=== PATIENT | female | born 1950 | race Caucasian/White ===

== ENCOUNTER 2019-03-16 06:12 | Day surgery (SDC) | payer OTHER ==
[2019-03-11 14:32] VITALS: BMI 20.7
[2019-03-16] MEDS ORDERED: LIDOCAINE HCL/PF 2% SDV 5ML VIAL ONE (07:22)
[2019-03-16] MEDS ORDERED: LIDOCAINE HCL 2% JELLY (5 ML/TUBE) ONE (07:22)
[2019-03-16] MEDS ORDERED: PROPOFOL 20 ML ONE ×4 (07:23)
[2019-03-16] MEDS ORDERED: MIDAZOLAM HCL 2 MG/2 ML SINGLE DOSE VIAL ONE (07:23)
[2019-03-16] MEDS ORDERED: oxyCODONE HCL 5 MG TABLET PO PRN (08:51)
[2019-03-16] MEDS ORDERED: IBUPROFEN 600 MG TABLET (FP) PO PRN (08:51)
[2019-03-16] MEDS ORDERED: ONDANSETRON 4 MG/2 ML VIAL IVPUSH PRN (08:51)
[2019-03-16] MEDS ORDERED: IBUPROFEN 800 MG/8 ML IJ IVPB PRN (08:51)
--- NOTE | 2019-03-16 08:53 | HP ---
History & Physical Update - History History: No Change - Physical Physical: No Change - Assessment Assessment: No Change - Plan Plan: No Change (H&P unchanged, consent signed and witnessed)
--- NOTE | 2019-03-16 08:57 | OP ---
Operative Note - Note: Operative Date: 03/16/19 Pre-Operative Diagnosis: 68yo P7 with 10mm Endometrium, no PMB Operation: Hysteroscopy/Polypectomy/D&C Post-Operative Diagnosis: Same as Pre-op Surgeon: Leyla Patel Anesthesiologist/CARPENTER'S HELPER: Zac Hunter Anesthesia: MAC Estimated Blood Loss (mls): 50 Drains & Tubes with Location: FD - 1150cc Drains, Volume Out (mls): 75 Fluid Volume Replaced (mls): 600 Operative Report Dictated: Yes
[2019-03-16] MEDS ORDERED: ELECTROLYTE-148 SOLN 1,000 ML IV SCH (09:00)
[2019-03-16 10:03] VITALS: PULSE 81; TEMP 97.3
[2019-03-16 10:59] VITALS: BP 122/69
--- NOTE | 2019-03-17 07:27 | OP ---
DATE OF OPERATION: DATE OF DICTATION: 03/16/2019 PREOPERATIVE DIAGNOSIS: A 68-year-old para 7 with 10-mm endometrium, no postmenopausal bleeding. PROCEDURE PERFORMED: Hysteroscopy, polypectomy, dilatation and curettage. POSTOPERATIVE DIAGNOSIS: A 68-year-old para 7 with 10-mm endometrium, no postmenopausal bleeding. Endometrial polyp. SURGEON: Sameer Ybarra MD ANESTHESIOLOGIST: Zac Hunter M.D. ANESTHESIA: MAC. DESCRIPTION OF PROCEDURE: After ensuring informed consent, the patient was brought to the operating room, where she was placed in the dorsal lithotomy position. The perineum and vagina were prepped and draped in sterile fashion. Thomas retractors were placed into the vagina. The anterior cervical lip was grasped with a single-tooth tenaculum, and the cervix was gradually dilated to accommodate a 6.3-mm Symphion hysteroscope. The Symphion hysteroscope was assembled, white balanced and primed. It was introduced into the uterus without any difficulty. The right cornual polyp was noted. Subsequently the resectoscope piece was introduced through the hysteroscope and the polyp was resected. Dilatation and curettage was performed. Excellent hemostasis was noted. All instruments were removed from the uterus, cervix and vagina. Estimated blood loss was 50 mL. Fluid deficit was found to be 1150 mL. The patient was straight catheterized before the procedure and drained 75 mL of urine and received 600 mL of IV fluids during the procedure. Instrument and sponge counts were correct x2. The patient tolerated the procedure well, and was brought to the recovery room in stable condition. SAMEER YBARRA M.D. [id number]
--- NOTE | 2019-03-17 16:17 | PATH ---
Surgical Pathology Report Patient Name: SAMRA PARKER [facility]. Rec. #: [id number] /Age/Gender: 1950 (Age: 68) / F Account: [id number] Location: [facility] Taken: 03/16/2019 Received: 03/16/2019 Reported: 03/17/2019 Physicians: Leyla Patel M.D. Specimen(s) Received POLYP Clinical History Thickened endometrium Final Diagnosis ENDOMETRIAL POLYP, BIOPSY: FRAGMENTS OF ENDOMETRIAL POLYP. SEPARATE FRAGMENTS OF SMOOTH MUSCLE BUNDLES, MAY REPRESENT A SUBMUCOSAL LEIOMYOMA IN THE PROPER CLINICAL SETTING. SEPARATE FRAGMNETS OF ATROPHIC ENDOMETRIUM. Electronically Signed Boris Dela Cruz M.D. Gross Description Received in formalin labeled "polyp," is a 3.5 x 2.0 x 0.3 cm aggregate of camilo soft tissue fragments. The formalin is filtered and the specimen is entirely submitted in 2 cassettes. DL/03/16/2019 saudi/03/16/2019
== END 2019-03-16 11:05 | disposition home or self-care (01) ==
LOC: JASU-SURG 06:12
PROVIDERS: ATTEND Obstetrics & Gynecology
PROC: 0UJD8ZZ Inspection of Uterus and Cervix, Via Natural or Artificial Opening Endoscopic (ICD-10-PCS; 2019-03-16)
PROC: 0UB97ZX Excision of Uterus, Via Natural or Artificial Opening, Diagnostic (ICD-10-PCS; principal; 2019-03-16 07:30)
PROC: 0UDB7ZX Extraction of Endometrium, Via Natural or Artificial Opening, Diagnostic (ICD-10-PCS; 2019-03-16 07:30)
DX: N84.0 Polyp of corpus uteri (principal)
CPT/HCPCS: 71046-TC-FY; 88305-TC; 94760